=== PATIENT | female | born 2000 | race Native Hawaiian/Other Pacific Islander ===

== ENCOUNTER 2020-04-17 15:12 | Emergency (ER) | payer BC, SELFPAY ==
[2020-04-17 15:21] VITALS: BP 128/86; PULSE 92; RESP 16; TEMP 36.9; O2SAT 99; BMI 22.1
[2020-04-17 16:00] LABS: Add Manual Diff / Slide Review NO; Basophils Absolute Auto 100 /uL (0-100); Basophils Percent Auto 1.1 % (0-2); Eosinophils Absolute Auto 200 /uL (0-450); Eosinophils Percent Auto 3.7 % (2-4); Hematocrit 41.7 % (36-46); Hemoglobin 14.1 g/dL (12.0-16.0); Lymphocytes Absolute Auto 1700 /uL (1100-4500); Lymphocytes Percent Auto 32.3 % (25-40); Mean Corpuscular HGB Conc 33.7 % (30-36); Mean Corpuscular Volume 95.1 fL (80-100); Monocytes Absolute Auto 400 /uL (0-900); Monocytes Percent Auto 7.9 % (3-14); Neutrophils Absolute Auto 2900 /uL (1500-7000); Platelet Count 214 X10^3/uL (150-400); Red Blood Cell Count 4.39 X10^6/uL (4.0-5.2); Red Cell Distribution Width 12.3 % (11.6-14.8); White Blood Cell Count 5.3 X10^3/uL (4.5-11.0)
[2020-04-17 16:11] LABS: Alanine Aminotransferase 15 IU/L (<35); Albumin 4.7 g/dL (3.5-5.0); Albumin Globulin Ratio 1.5 (1.0-2.8); Alkaline Phosphatase 47 U/L (38-126); Aspartate Aminotransferase 27 IU/L (14-36); BUN Creatinine Ratio 11.8 (6-22); Bilirubin Total 0.6 mg/dL (0.2-1.3); Blood Urea Nitrogen 9 mg/dL (7-17); Calcium 9.5 mg/dL (8.4-10.2); Carbon Dioxide 23 mmol/L (22-32); Chloride 108 mmol/L (98-107); Estimated Glomerular Filt Rate > 60.0 mL/min (>60); Globulin 3.1 g/dL (1.7-4.1); Glucose 90 mg/dL (70-100); HEMOLYSIS 18 (0-50); Potassium 3.9 mmol/L (3.4-5.1); Sodium 141 mmol/L (137-145); Total Protein 7.8 g/dL (6.3-8.2)
[2020-04-17] MEDS: cefTRIAXone 1,000 MG VIAL 250 MG IM (17:12)
[2020-04-17] MEDS: metroNIDAZOLE 250 MG TABLET 500 MG PO (17:14)
[2020-04-17] MEDS: DOXYCYCLINE HYCLATE 100 MG TABLET PO (17:15)
[2020-04-17] MEDS: LIDOCAINE 1% (PF) 2 ML (17:20)
[2020-04-17 17:53] VITALS: BP 116/82; PULSE 80; RESP 16; O2SAT 100
[2020-04-17 18:00] LABS: Urine N gonorrhoeae NOT DETECTED
[2020-04-17 18:14] LABS: Urine Chlamydia DETECTED
--- NOTE | 2020-04-17 19:50 | ED.ABDPAIN ---
HPI - Abdominal Pain <MÓNICA Duenas - Last Filed: 04/17/20 19:57> General Chief Complaint: Abdominal Pain Stated Complaint: sharp stomach and upper back pain Time Seen by Provider: 04/17/20 15:17 Source: patient Mode of arrival: Ambulatory Limitations: no limitations History of Present Illness HPI narrative: The patient is a 19-year-old female nonsmoker who denies pertinent medical history presents with a chief complaint of lower abdominal pain, radiating around her back that is been ongoing for about a week. She complains of urinary symptoms including dysuria urgency, frequency states that she was tested for urinary tract infection at her [facility] in [place] last week, she tested negative. She denies any vaginal discharge but complains of vaginal irritation. She denies any fevers nausea vomiting or diarrhea. She has not taken anything to feel better. She has no specific concerns about sexually transmitted infections, but would like to be tested. She states that the provider at this [facility] recommended she see an OBGYN to be checked for pelvic inflammatory disease. Patient later states that she has had 2 episodes of bacterial vaginosis in the past few years. Related Data Home Medications Medication Instructions Recorded Confirmed [ control] #0 04/15/16 clindamycin phosphate [Clindagel] #0 04/15/16 Previous Rx's Medication Instructions Recorded doxycycline hyclate 100 mg PO BID 14 Days #28 cap 04/17/20 metronidazole 500 mg PO BID 14 Days #28 tab 04/17/20 Allergies Allergy/AdvReac Type Severity Reaction Status Date / Time No Known Drug Allergies Allergy Verified 04/17/20 15:36 Review of Systems <MÓNICA Duenas - Last Filed: 04/17/20 19:57> Review of Systems Narrative: GENERAL: Denies chills, fatigue, malaise, fever, sweats. HEENT: Denies sinus pain, ear pain, sore throat, difficulty swallowing, dizziness. RESPIRATORY: Denies dyspnea, cough, wheezing, hemoptysis, sputum. CARDIOVASCULAR: Denies chest pain, palpitations, orthopnea, edema, GASTROINTESTINAL: See HPI : See HPI MUSCULOSKELETAL: denies weakness, joint pain, or bony pain SKIN: Denies rash, skin lesions, or other NEUROLOGIC: Denies weakness, headache, numbness, change in speech, confusion, seizures, incoordination. PSYCHIATRIC: No concerning psychosocial issues. 12 point review of systems is negative except for those stated above Patient History <Argentina LujanMÓNICA - Last Filed: 04/17/20 19:57> Social History Smoking Status: Never smoker Smoking Status: Never smoker alcohol intake frequency: 0-2 drinks per day Substance Use Type: does not use Exam <Argentina LujanMÓNICA - Last Filed: 04/17/20 19:57> Narrative Exam Narrative: GENERAL: This is a well-nourished, well-developed patient, in no acute distress HEAD: Atraumatic. Normocephalic. No temporal or scalp tenderness. EYES: Pupils equal round and reactive. Extraocular motions intact. No scleral icterus. No injection or drainage. ENT: Nose without bleeding, purulent drainage or septal hematoma. Wearing a mask Airway patent. NECK: Trachea midline. No JVD or lymphadenopathy. Supple, nontender, no meningeal signs. CARDIOVASCULAR: Regular rate and rhythm RESPIRATORY: Clear to auscultation. Breath sounds equal bilaterally. No wheezes, rales, or rhonchi. No cough. No increased respiratory effort. No accessory muscle use. GASTROINTESTINAL: Abdomen soft, non-tender, nondistended. No hepato-splenomegaly, or palpable masses. No guarding. Active bowel sounds all 4 quadrants. EXTREMITIES: No clubbing, cyanosis, or edema. No joint tenderness, effusion, or edema noted. BACK: Nontender without deformity or crepitance. No flank tenderness. NEURO: AOx3. SKIN: No rash or erythema on visible Pelvic exam: Molly LUJAN as numerical control operator. Positive cervical motion tenderness, thick yellow drainage noted. No visible lacerations, rashes or visual abnormalities. Initial Vital Signs Initial Vital Signs: Vital Signs Temperature 98.5 F 04/17/20 15:21 Pulse Rate 92 H 04/17/20 15:21 Respiratory Rate 16 04/17/20 15:21 Blood Pressure 128/86 04/17/20 15:21 Pulse Oximetry 99 04/17/20 15:21 <Luther Ayoub DO - Last Filed: 04/18/20 23:43> Initial Vital Signs Initial Vital Signs: Vital Signs Temperature 98.5 F 04/17/20 15:21 Pulse Rate 92 H 04/17/20 15:21 Respiratory Rate 16 04/17/20 15:21 Blood Pressure 128/86 04/17/20 15:21 Pulse Oximetry 99 04/17/20 15:21 Scores <MÓNICA Duenas - Last Filed: 04/17/20 19:57> GCS Any coma scale eye opening: Spontaneous Any coma scale verbal response: Orientated [place] coma scale motor response: Obey commands Any coma scale total score: 15 Course <MÓNICA Duenas - Last Filed: 04/17/20 19:57> Orders Ordered: Discontinued Medications Ceftriaxone Sodium (Rocephin) 250 mg IM NOW ONE Stop: 04/17/20 16:59 Last Admin: 04/17/20 17:12 Dose: 250 mg Documented by: JABARI Doxycycline Hyclate (Vibramycin) 100 mg PO NOW ONE Stop: 04/17/20 16:59 Last Admin: 04/17/20 17:15 Dose: 100 mg Documented by: JABARI Metronidazole (Metronidazole) 500 mg PO NOW ONE Stop: 04/17/20 16:59 Last Admin: 04/17/20 17:14 Dose: 500 mg Documented by: JABARI Vital Signs Vital signs: Vital Signs - 8 hr 04/17/20 15:21 04/17/20 17:53 Temperature 98.5 F Pulse Rate 92 H 80 Respiratory Rate 16 16 Blood Pressure 128/86 116/82 Pulse Oximetry 99 100 <Luther Ayoub DO - Last Filed: 04/18/20 23:43> Orders Ordered: Discontinued Medications Ceftriaxone Sodium (Rocephin) 250 mg IM NOW ONE Stop: 04/17/20 16:59 Last Admin: 04/17/20 17:12 Dose: 250 mg Documented by: JABARI Doxycycline Hyclate (Vibramycin) 100 mg PO NOW ONE Stop: 04/17/20 16:59 Last Admin: 04/17/20 17:15 Dose: 100 mg Documented by: JABARI Metronidazole (Metronidazole) 500 mg PO NOW ONE Stop: 04/17/20 16:59 Last Admin: 04/17/20 17:14 Dose: 500 mg Documented by: JABARI Vital Signs Vital signs: Vital Signs - 8 hr 04/17/20 15:21 04/17/20 17:53 Temperature 98.5 F Pulse Rate 92 H 80 Respiratory Rate 16 16 Blood Pressure 128/86 116/82 Pulse Oximetry 99 100 MDM - Abdominal Pain <Argentina Lujan, DRILLING AND PRODUCTION SUPERINTENDENT- - Last Filed: 04/17/20 19:57> Lab Data Result diagrams: 04/17/20 15:50 04/17/20 15:50 Labs: Lab Results 04/17/20 04/17/20 04/17/20 Range/Units 15:50 15:50 16:29 WBC 5.3 (4.5-11.0) X10^3/uL RBC 4.39 (4.0-5.2) X10^6/uL Hgb 14.1 (12.0-16.0) g/dL Hct 41.7 (36-46) % MCV 95.1 (80-100) fL MCH 32.0 (26-34) PG MCHC 33.7 (30-36) % RDW 12.3 (11.6-14.8) % Plt Count 214 (150-400) X10^3/uL Neut % (Auto) 55.0 (50-75) % Lymph % (Auto) 32.3 (25-40) % [place] % (Auto) 7.9 (3-14) % Eos % (Auto) 3.7 (2-4) % Baso % (Auto) 1.1 (0-2) % Neut # (Auto) 2900 (0702-7672) /uL Lymph # (Auto) 1700 (3446-5515) /uL [place] # (Auto) 400 (0-900) /uL Eos # (Auto) 200 (0-450) /uL Baso # (Auto) 100 (0-100) /uL Sodium 141 (137-145) mmol/L Potassium 3.9 (3.4-5.1) mmol/L Chloride 108 H (98-107) mmol/L Carbon Dioxide 23 (22-32) mmol/L BUN 9 (7-17) mg/dL Creatinine 0.76 (0.52-1.04) mg/dL Estimated GFR > 60.0 (>60) mL/min BUN/Creatinine Ratio 11.8 (6-22) Glucose 90 (70-100) mg/dL Calcium 9.5 (8.4-10.2) mg/dL Total Bilirubin 0.6 (0.2-1.3) mg/dL AST 27 (14-36) IU/L ALT 15 (<35) IU/L Alkaline Phosphatase 47 (38-126) U/L Total Protein 7.8 (6.3-8.2) g/dL Albumin 4.7 (3.5-5.0) g/dL Globulin 3.1 (1.7-4.1) g/dL Albumin/Globulin Ratio 1.5 (1.0-2.8) Ur Chlamydia DNA (PCR) Detected H N gonorrhoeae DNA (PCR) Not detected Point of care testing: Point of Care Testing Test Results Negative Urine Dip Bedside Urine Glucose Negative Bedside Urine Bilirubin - Negative Bedside Urine Ketone - Negative Urine Specific [place] 1.010 Bedside Urine Occult Blood - Negative Bedside Urine pH 7.0 Bedside Urine Protein - Negative Bedside Urine Urobilinogen - Negative Bedside Urine Nitrite - Negative Bedside Urine Leukocytes - Negative Esterase MDM Narrative Medical decision making narrative: The patient is a 19-year-old female who presents with a chief complaint of lower abdominal pain and they urinary complaints. Urinalysis shows no signs of infection. She does have cervical motion tenderness on exam so coverage was provided for pelvic inflammatory disease. She does have clue cells, and became bacterial vaginosis, some metronidazole was added to her regimen. After discharge, she did test positive for chlamydia, and I called and discussed the results with her, discussed that she should discuss with her sexual partners so that they can be tested as well. The patient was nontoxic and well appearing for stay in the emergency department, afebrile in no acute distress. I encouraged follow-up with primary care provider in the next few days and gave her contact information at [facility] health human resources assistant manager in case it is needed. Discussed at length coming back to the ER for acute concerns including abdominal pain with fever, is keep down fluids etcetera. Patient has no questions or concerns upon discharge and states understanding return precautions as well as follow-up care. <Luther Ayoub, DO - Last Filed: 04/18/20 23:43> Lab Data Labs: Lab Results 04/17/20 04/17/20 04/17/20 Range/Units 15:50 15:50 16:29 WBC 5.3 (4.5-11.0) X10^3/uL RBC 4.39 (4.0-5.2) X10^6/uL Hgb 14.1 (12.0-16.0) g/dL Hct 41.7 (36-46) % MCV 95.1 (80-100) fL MCH 32.0 (26-34) PG MCHC 33.7 (30-36) % RDW 12.3 (11.6-14.8) % Plt Count 214 (150-400) X10^3/uL Neut % (Auto) 55.0 (50-75) % Lymph % (Auto) 32.3 (25-40) % [place] % (Auto) 7.9 (3-14) % Eos % (Auto) 3.7 (2-4) % Baso % (Auto) 1.1 (0-2) % Neut # (Auto) 2900 (1400-4723) /uL Lymph # (Auto) 1700 (4102-7742) /uL [place] # (Auto) 400 (0-900) /uL Eos # (Auto) 200 (0-450) /uL Baso # (Auto) 100 (0-100) /uL Sodium 141 (137-145) mmol/L Potassium 3.9 (3.4-5.1) mmol/L Chloride 108 H (98-107) mmol/L Carbon Dioxide 23 (22-32) mmol/L BUN 9 (7-17) mg/dL Creatinine 0.76 (0.52-1.04) mg/dL Estimated GFR > 60.0 (>60) mL/min BUN/Creatinine Ratio 11.8 (6-22) Glucose 90 (70-100) mg/dL Calcium 9.5 (8.4-10.2) mg/dL Total Bilirubin 0.6 (0.2-1.3) mg/dL AST 27 (14-36) IU/L ALT 15 (<35) IU/L Alkaline Phosphatase 47 (38-126) U/L Total Protein 7.8 (6.3-8.2) g/dL Albumin 4.7 (3.5-5.0) g/dL Globulin 3.1 (1.7-4.1) g/dL Albumin/Globulin Ratio 1.5 (1.0-2.8) Ur Chlamydia DNA (PCR) Detected H N gonorrhoeae DNA (PCR) Not detected Point of care testing: Point of Care Testing Test Results Negative Urine Dip Bedside Urine Glucose Negative Bedside Urine Bilirubin - Negative Bedside Urine Ketone - Negative Urine Specific [place] 1.010 Bedside Urine Occult Blood - Negative Bedside Urine pH 7.0 Bedside Urine Protein - Negative Bedside Urine Urobilinogen - Negative Bedside Urine Nitrite - Negative Bedside Urine Leukocytes - Negative Esterase Discharge Plan Departure Patient Disposition: Home Clinical Impression: Acute pelvic inflammatory disease, Bacterial vaginosis Discharge Date/Time: 04/17/20 17:54 Instructions: DI for Pelvic Inflammatory Disease (PID), DI for Bacterial Vaginosis, DI for Abdominal Pain-Adult Activity Restrictions/Additional Instructions: Thank you for trusting us with your care today I sent 2 prescriptions to [facility] in [place]. With metronidazole, do not drink any alcohol. With doxycycline, please be sure to wear sunscreen. I suggest using a probiotic and/or eating yogurt while taking your antibiotics to help prevent antibiotic associated diarrhea or yeast infection Please follow-up with primary care provider in the next few days. Given contact information to the [facility] health human resources assistant manager, who can help you identify a new primary care provider Back to emergency department for any acute concerns such as abdominal pain with fever, inability keep down fluids etcetera Prescriptions: New doxycycline hyclate 100 mg capsule 100 mg PO BID 14 Days Qty: 28 RF: 0 metronidazole 500 mg tablet 500 mg PO BID 14 Days Qty: 28 RF: 0 No Action clindamycin phosphate [Clindagel] 1 % gel Qty: 0 RF: 0 [ control] Qty: 0 RF: 0 Referrals: [facility] Resources [Outside] Miscellaneous,DoctorMD [Primary Care Provider] - <Luther Ayoub DO - Last Filed: 04/18/20 23:43> [facility]: I was immediately available in the department for consultation. This documentation has been reviewed and I agree with assessment and plan. Supervised by Luther Ayoub DO
== END 2020-04-17 17:54 | disposition home or self-care (01) ==
PROVIDERS: Emergency Provider Nurse Practitioner Family
DX: A56.11 Chlamydial female pelvic inflammatory disease (principal); N76.0 Acute vaginitis; R30.0 Dysuria
CPT/HCPCS: 36415; 80053; 81003; 81025; 85025; 87070; 87077; 87147; 87205; 87210; 87252; 87491; 87591; 96372; 99283; 99284; J0696